=== PATIENT | male | born 1945 | race Caucasian/White ===

== ENCOUNTER 2022-01-03 11:40 | Emergency (ER) | payer MEDICARE, OTHER ==
[2022-01-03] MEDS ORDERED: Sodium Chloride 0.9% 10 ML Syringe FLUSH PRN (11:46)
[2022-01-03] MEDS ORDERED: Sodium Chloride 0.9% 1,000 ML IV ONE (12:36)
[2022-01-03] MEDS ORDERED: Alum Hydrox/Mag Hydrox/Simeth 30 ML, Lidocaine 2% 15 ML PO ONE ×2 (12:38)
[2022-01-03 16:32] VITALS: BP 149/82; PULSE 69
== END 2022-01-03 16:34 | disposition home or self-care (01) ==
LOC: CC.ED 11:40
DX: R07.89 Other chest pain (principal); K29.00 Acute gastritis without bleeding; Z88.8 Allergy status to other drugs, medicaments and biological substances; Z79.899 Other long term (current) drug therapy; Z79.82 Long term (current) use of aspirin
CPT/HCPCS: 36415; 71045; 80053; 83735; 83880; 84484; 85025; 93005; 96360; 96361; 99284; 99284-25; A9270-GY; J7030